=== PATIENT | female | born 1980 | race African-American/Black ===

== ENCOUNTER 2022-08-25 09:46 | Emergency (ER) | payer OTHER ==
[~2022-08-25] VITALS: Ht 396.2 cm; Wt 108.9 kg
[2022-08-25] MEDS ORDERED: CLEOCIN HCL300 MG PO (12:47)
== END 2022-08-25 13:13 | disposition home or self-care (01) ==
LOC: ER 09:46
DX: L08.9 Local infection of the skin and subcutaneous tissue, unspecified (principal); Z88.0 Allergy status to penicillin